=== PATIENT | female | born 1975 | race Caucasian/White ===

== ENCOUNTER 2024-04-02 08:06 | Emergency (ER) | payer BC, SELFPAY ==
[2024-04-02 08:07] VITALS: BP 151/95
--- NOTE | 2024-04-02 09:27 | ED.GENMED ---
History of Present Illness
General
Chief Complaint: Cough
Source: patient
Time Seen by Provider: 04/02/24 09:15
Travel History
Have you had any contact with someone who has COVID-19?: No
Do you have any symptoms of coronavirus? Fever > 100 degrees, chills, cough, shortness of breath, sore throat, loss of taste or smell, muscle aches, or headache?: No
History of Present Illness
History of Present Illness:
49-year-old female with past medical history of hypertension, GERD, psychiatric illness presenting to the emergency department for evaluation of cough and upper respiratory symptoms that been ongoing for around 1 week. Over the weekend patient
states symptoms seem to get worse so she went to urgent care who prescribed her Mucinex and she had leftover cough medication from a previous illness but she states is not giving her any relief. She continued with fever this morning, last dose of
Tylenol around 5 AM. She does note a history of frequent pneumonia and bronchitis. She denies any sore throat, otalgia, known sick contacts, recent travel or recent antibiotics. She has no other concerns at this time.
Past History
Past History
ED Past Medical History: GERD, HTN, Psychiatric, Other (gastroparesis), Other (Prior kidney stone) and Other (Patient has a history of a bad back )
ED Past Surgical History: None
Social History
Tobacco: Non-smoker
Alcohol: None
Drug: None
Personal: Other
Living: with family
Employment: Employed
Family History
Family History: Other (Noncontributory)
Review of Systems
Review of Systems
All Other Systems: ROS reviewed and negative except as documented in HPI and ROS
Phy Exam
Physical Exam
Physical Exam:
GENERAL: Alert , in no apparent distress, does appear upset and frequent coughing noted.
EYE: conjunctiva clear
NECK: Supple
ENT: o/p clr, mmm.
CARDIAC: Regular rate and rhythm
LUNGS: Clear breath sounds bilaterally, no acute respiratory distress, no wheezes/rales/rhonchi
NEUROLOGICAL: Alert and oriented
SKIN: Hot to the touch and dry, skin intact.
MUSCULOSKELETAL: well perfused.
PSYCH: Normal and appropriate interaction.
Scores
Heart Failure Risk
Heart Failure Risk Score: Not Applicable
Heart Score for Chest Pain Patients
STEMI patient?: Not applicable
Withdrawal Assessment of Alcohol
Withdrawal Assessment Completed?: Not applicable
Course
Orders/Labs/Results
Orders:
Orders
04/02/24 09:24
CR Chest - 2 Views Urgent
Comment:
Reason For Exam: cough, fever
04/02/24 09:26
Ibuprofen [Motrin] 600 mg PO NOW STA
04/02/24 09:58
Basic Metabolic Panel Urgent
COVID-19 Antigen Urgent
Source: Nasal Swab
Complete Blood Count/With Diff Urgent
Influenza A+B Rapid Molecular Urgent
SANIA Source: Nasal Swab
Specimen Description:
Abnormal Lab Results
04/02/24
09:58
Absolute Lymphs (auto) 0.8 L 10^3/uL
(1.2-3.4)
Lymphocytes % 17.2 L %
(20.5-51.1)
Creatinine 1.1 H mg/dL
(0.6-1.0)
Glucose 107 H mg/dl
(70-99)
04/02/24 09:58
04/02/24 09:58
Vital Signs
Initial and Last Documented VS:
Initial Vital Signs
Temp Pulse Resp BP Pulse Ox
100.5 F H 102 20 151/95 100
04/02/24 08:07 04/02/24 08:07 04/02/24 08:07 04/02/24 08:07 04/02/24 08:07
Last Documented Vital Signs
Temp Pulse Resp BP Pulse Ox
100.6 F H 87 18 123/90 96
04/02/24 10:40 04/02/24 10:40 04/02/24 11:20 04/02/24 10:40 04/02/24 10:40
MDM/Problems Addressed
Differential Diagnosis Includes:
COVID, flu, other viral syndrome, pneumonia
MDM/Problems Addressed:
49-year-old female presenting to the emergency department for evaluation of persisting cough, fever and generally feeling unwell for the last week. Went to urgent care over the weekend and was given supportive care medications with no relief. On
arrival here patient is febrile, borderline tachycardic and persisting cough noted. I do suspect pneumonia/bronchitis to be most likely diagnosis. Will obtain labs, chest x-ray, COVID and flu testing ordered. Anticipate discharge home.
*Radiology
Radiology exam reviewed: preliminary read by ED provider (no acute infiltrates)
*Pulse Oximetry
Patient hypoxic: no
*Critical Care Note
Total Time (30-74mins, 75-104mins- exclusive of procedures): Not Applicable
Data Reviewed
Review of Other/Old Records Reveals: Radiology Studies
Source: patient
Patient Management
Escalation/DeEscalation of care consider admission/obs:
Patient's chest x-ray is unremarkable for any acute pathology. She remains hemodynamically stable. COVID and flu testing negative. Will treat for a community-acquired pneumonia with doxycycline. Prescription for albuterol was also sent to
pharmacy. Patient requesting Diflucan as needed given she is prone to yeast infections. Advise close follow-up with primary care provider. Stable for discharge home
ED Attending Note
-
Portions of this chart may have been created with voice recognition software.� Occasional wrong word or��sound alike� substitutions may have occurred due to the inherent limitations of voice recognition software.
Discharge Plan
Departure
Patient Disposition: Home (Routine Discharge)
Date of Disposition: 04/02/24
Time of Disposition: 11:07
Patient with high blood pressure during this ER visit?: No
Discharge Problem:
Cough
Instructions: Pneumonia, Adult (DC)
Prescriptions:
New
doxycycline hyclate [Vibramycin] 100 mg capsule
100 mg PO BID 10 Days Qty: 20 0RF
albuterol sulfate 90 mcg/actuation HFA aerosol inhaler
2 puff inhalation Q6H PRN (Reason: shortness of breath or wheezing) Qty: 6.7 0RF
fluconazole 150 mg tablet
150 mg PO DAILY Qty: 1 0RF
No Action
nebivolol 2.5 MG tablet
5 mg PO .WITH DINNER
ferrous sulfate [FeroSul] 325 MG tablet
325 mg PO BID Qty: 30 0RF
cephalexin [Keflex] 500 MG capsule
500 mg PO QID Qty: 8 0RF
oxycodone-acetaminophen 5 MG/325 MG tablet
1 tab PO Q4HPRN PRN (Reason: for pain) Qty: 14 0RF
ondansetron 4 MG tablet,disintegrating
4 mg PO TIDPRN PRN (Reason: nausea/vomiting) Qty: 10 0RF
hydrocodone-acetaminophen 1 TABLET tablet
1 tab PO Q4HPRN PRN (Reason: pain) Qty: 10 0RF
ibuprofen 600 MG tablet
600 mg PO Q6HPRN PRN (Reason: pain) Qty: 20 0RF
Referrals:
Carl Alex, [Family Provider] -
Interventions
Interventions:
*Risk Screen - Suicide Last Done: 04/02/24 08:07
*General Assessment Last Done: 04/02/24 08:07
*Neglect/Abuse Screening Last Done: 04/02/24 08:07
ED- Fall Risk Assessment Last Done: 04/02/24 11:30
*ED COVID-19 Vaccine History Last Done: 04/02/24 11:30
*Nursing Disposition Last Done: 04/02/24 11:30
ED- Pulmonary Assessment Last Done: 04/02/24 09:01
Discharge Date and Time
Discharge Date/Time: 04/02/24 11:30
Print Language: ANGUILLAN
[2024-04-02] MEDS: MOTRIN 600 MG PO (09:49)
[2024-04-02 10:12] LABS: % Basophils 0.6 % (0-2); % Eosinophils 0.2 % (0-6); % Immature Granulocytes 0.4 % (0-0.5); % Lymphocytes 17.2 % (20.5-51.1); % Monocytes 7.7 % (1.7-9.3); % Neutrophils 73.9 % (42.2-75.2); Absolute Lymphocytes 0.8 10^3/uL (1.2-3.4); Absolute Monocytes 0.4 10^3/uL (0.1-0.6); Absolute Neutrophils 3.5 10^3/uL (1.4-6.5); Hemoglobin 14.2 g/dL (12.0-16.0); Mean Corp Hgb Conc. 33.8 g/dL (33.0-37.0); Mean Corpuscular Hgb 30.3 pg (27.0-31.0); Mean Corpuscular Volume 89.6 fL (81.0-99.0); Nucleated Red Blood Cells % 0 %; Red Blood Cell Count 4.69 10^6/uL (4.20-5.40); Red Cell Dist. Width 12.3 % (11.5-14.5); White Blood Cell Count 4.8 10^3/uL (4.8-10.8)
[2024-04-02 10:21] LABS: Blood Urea Nitrogen 16 mg/dl (7-17); Calcium 9.4 mg/dl (8.4-10.2); Carbon Dioxide 27 mmol/L (22-30); Chloride 100 mmol/L (98-107); Glucose 107 mg/dl (70-99); Potassium 4.2 mmol/L (3.5-5.1); Sodium 137 mmol/L (135-145); eGFR > 60.00
[2024-04-02 10:25] LABS: COVID-19 Antigen Negative (Negative)
[2024-04-02 10:40] VITALS: BP 123/90
== END 2024-04-02 11:30 | disposition home or self-care (01) ==
LOC: EMR 08:06
PROVIDERS: Physician Assistant Medical; EMERGENCY PHYSICIAN Emergency Medicine; FAMILY PHYSICIAN Family Medicine
DX: R05.9 Cough, unspecified (principal); R50.9 Fever, unspecified; Z11.52 Encounter for screening for COVID-19; I10 Essential (primary) hypertension; K21.9 Gastro-esophageal reflux disease without esophagitis; K31.84 Gastroparesis; Z87.442 Personal history of urinary calculi; Z87.01 Personal history of pneumonia (recurrent); Z88.5 Allergy status to narcotic agent; Z88.1 Allergy status to other antibiotic agents; Z91.040 Latex allergy status
CPT/HCPCS: 99283; 71046; 80048; 85025; 87502; 87811

== ENCOUNTER → 2025-03-04 10:05 | Outpatient (REF) | payer BC, SELFPAY | LOC: EMG 10:05 | PROVIDERS: ATTENDING PHYSICIAN Orthopaedic Surgery; FAMILY PHYSICIAN Family Medicine | DX: R20.0 Anesthesia of skin (principal) | CPT/HCPCS: 95886; 95910 ==